=== PATIENT | female | born 1955 | race Asian ===

== ENCOUNTER 2023-01-29 08:46 | Inpatient (IN) | payer BC, MEDICARE ==
[~2023-01-29] VITALS: Ht 157.5 cm; Wt 62.7 kg
[~2023-01-29 08:46] MED LIST: CIPRO500 MG PO; METRONIDAZOLE500 MG PO
[2023-01-29] MEDS ORDERED: SODIUM CHLORIDE 0.9% 1000ML 1,000 ML IV STA (09:23)
[2023-01-29 09:43] LABS: BASOPHILS # (AUTO) 0.1 (0.0-0.1); BASOPHILS % 0.3 % (0.0-1.0); EOSINOPHILS % 0.1 % (0.0-6.0); HEMATOCRIT 41.7 % (34.2-44.1); HEMOGLOBIN 14.1 g/dL (12.0-16.0); LYMPHOCYTES # (AUTO) 1.3 (1.0-3.2); LYMPHOCYTES % 6.7 % (18.0-39.1); MEAN CORPUSCULAR HEMOGLOBIN 29.4 pg (28-32); MEAN CORPUSCULAR HGB CONC 33.8 g/dL (31-35); MEAN CORPUSCULAR VOLUME 86.9 fL (81-99); MONOCYTES # (AUTO) 0.8 (0.2-0.8); MONOCYTES % 4.3 % (4.4-11.3); NEUTROPHILS # (AUTO) 17.2 (2.1-6.9); NEUTROPHILS % 88.3 % (38.7-80.0); PLATELET COUNT 255 x10e3/uL (140-360); RED CELL DISTRIBUTION WIDTH 13.5 % (11.7-14.4)
[2023-01-29 09:53] LABS: INR 0.91; PROTHROMBIN TIME 12.8 seconds (11.9-14.5)
[2023-01-29 09:54] LABS: PARTIAL THROMBOPLASTIN TIME 39.2 seconds (23.8-35.5)
[2023-01-29 10:00] LABS: ALANINE AMINOTRANSFERASE 44 IU/L (0-55); ALBUMIN 4.4 g/dL (3.5-5.0); ALBUMIN/GLOBULIN RATIO 1.2 (0.8-2.0); ALKALINE PHOSPHATASE 68 IU/L (40-150); ANION GAP 15.6 mmol/L (8-16); BLOOD UREA NITROGEN 12 mg/dL (7-26); BUN/CREATININE RATIO 16 (6-25); CALCIUM 9.7 mg/dL (8.4-10.2); CARBON DIOXIDE 23 mmol/L (22-29); CHLORIDE 104 mmol/L (98-107); CREATININE, SERUM 0.77 mg/dL (0.57-1.11); GLUCOSE 139 mg/dL (74-118); LIPASE 34 U/L (8-78); POTASSIUM 3.6 mmol/L (3.5-5.1); SODIUM 139 mmol/L (136-145)
[2023-01-29] MEDS ORDERED: DIATRIZOATE MEGL/DIATRIZOA SOD 30 ML BTL PO ONE (10:01)
[2023-01-29 10:06] LABS: CLARITY,URINE CLEAR (CLEAR); COLOR,URINE YELLOW (YELLOW); KETONES,URINE NEGATIVE (NEGATIVE); LEUKOCYTE ESTERASE ,URINE NEGATIVE (NEGATIVE); NITRITE,URINE NEGATIVE (NEGATIVE); PROTEIN,URINE DIPSTICK NEGATIVE (NEGATIVE); URINE UROBILINOGEN 0.2 mg/dL (0.2 - 1)
[2023-01-29] MEDS ORDERED: IOPAMIDOL 370 MG/ML 100 ML INFUS..BTL INJ ONE (10:07)
[2023-01-29 10:23] LABS: BACTERIA,URINE FEW /HPF; EPITHELIAL CELLS,URINE FEW /LPF; RBC,URINE 0-5 /HPF (0-5); WBC,URINE (MAN) 0-5 /HPF (0-5)
[2023-01-29] MEDS: Morphine 2mg Syringe 2 MG/ML SYR IV PRN ×3 (14:28→22:12)
[2023-01-29] MEDS: ONDANSETRON HCL INJ 2MG/ML 2ML 2 MG/ML VIAL IV PRN ×3 (14:29→22:12)
[2023-01-29] MEDS: METRONIDAZOLE 500MG/NS 100ML 100 ML IV SCH ×2 (14:31→17:33)
[2023-01-29] MEDS: SODIUM CHLORIDE 0.9% 1000ML 1,000 ML IV SCH (14:31)
[2023-01-29 15:27] VITALS: BP 152/67; PULSE 68; RESP 18; TEMP 98.2; O2SAT 98
[2023-01-29 16:15] VITALS: BP 152/67; PULSE 68; RESP 18; TEMP 98.2; O2SAT 98
[2023-01-29 17:18] VITALS: BP 152/67; PULSE 68; RESP 18; TEMP 98.2; O2SAT 98
[2023-01-29] MEDS ORDERED: NO HOME MEDS (17:44)
[2023-01-29 20:00] VITALS: BP 157/69; PULSE 74; RESP 17; TEMP 100.6; O2SAT 97
[2023-01-30 00:06] VITALS: BP 149/60; PULSE 75; RESP 17; TEMP 100.8; O2SAT 95
[2023-01-30] MEDS: METRONIDAZOLE 500MG/NS 100ML 100 ML IV SCH ×5 (00:31→23:21)
[2023-01-30 04:00] VITALS: BP 136/61; PULSE 76; RESP 16; TEMP 98.1; O2SAT 95
[2023-01-30 05:56] LABS: BASOPHILS % 0.2 % (0.0-1.0); EOSINOPHILS % 0.2 % (0.0-6.0); HEMATOCRIT 32.8 % (34.2-44.1); HEMOGLOBIN 10.9 g/dL (12.0-16.0); LYMPHOCYTES # (AUTO) 1.2 (1.0-3.2); LYMPHOCYTES % 9.5 % (18.0-39.1); MEAN CORPUSCULAR HEMOGLOBIN 29.2 pg (28-32); MEAN CORPUSCULAR HGB CONC 33.2 g/dL (31-35); MEAN CORPUSCULAR VOLUME 87.9 fL (81-99); MONOCYTES # (AUTO) 0.7 (0.2-0.8); NEUTROPHILS % 84.7 % (38.7-80.0); PLATELET COUNT 217 x10e3/uL (140-360); RED BLOOD COUNT 3.73 x10e6/uL (3.6-5.1)
[2023-01-30 06:14] LABS: ALBUMIN 2.9 g/dL (3.5-5.0); ANION GAP 11.1 mmol/L (8-16); CALCIUM 8.2 mg/dL (8.4-10.2); CREATININE, SERUM 0.78 mg/dL (0.57-1.11); POTASSIUM 3.1 mmol/L (3.5-5.1)
[2023-01-30] MEDS: ONDANSETRON HCL INJ 2MG/ML 2ML 2 MG/ML VIAL IV PRN ×3 (07:58→16:46)
[2023-01-30] MEDS: Morphine 2mg Syringe 2 MG/ML SYR IV PRN ×3 (07:58→16:47)
[2023-01-30] MEDS: SODIUM CHLORIDE 0.9% 1000ML 1,000 ML IV SCH (07:59)
[2023-01-30] MEDS ORDERED: POTASSIUM CHLORIDE 20 MEQ TAB CR PO STA (08:40)
[2023-01-30 08:55] VITALS: BP 138/64; PULSE 67; RESP 16; TEMP 98.1; O2SAT 97
[2023-01-30 12:43] VITALS: BP 144/62; PULSE 78; RESP 16; TEMP 99.9; O2SAT 98
[2023-01-30 16:16] VITALS: BP 149/74; PULSE 81; RESP 16; TEMP 100.9; O2SAT 98
[2023-01-30 20:00] VITALS: BP 148/63; PULSE 71; RESP 16; TEMP 100.6; O2SAT 100
[2023-01-31] VITALS: BP 147/65; PULSE 74; RESP 17; TEMP 98.4; O2SAT 97
[2023-01-31 04:00] VITALS: BP 135/67; PULSE 77; RESP 17; TEMP 100.1; O2SAT 96
[2023-01-31] MEDS: METRONIDAZOLE 500MG/NS 100ML 100 ML IV SCH ×3 (06:10→17:09)
[2023-01-31 08:30] LABS: BASOPHILS % 0.2 % (0.0-1.0); EOSINOPHILS # (AUTO) 0.1 (0.0-0.4); EOSINOPHILS % 0.4 % (0.0-6.0); HEMATOCRIT 38.2 % (34.2-44.1); HEMOGLOBIN 12.5 g/dL (12.0-16.0); LYMPHOCYTES # (AUTO) 1.4 (1.0-3.2); LYMPHOCYTES % 8.6 % (18.0-39.1); MEAN CORPUSCULAR HEMOGLOBIN 29.1 pg (28-32); MEAN CORPUSCULAR HGB CONC 32.7 g/dL (31-35); MEAN CORPUSCULAR VOLUME 88.8 fL (81-99); MONOCYTES # (AUTO) 0.7 (0.2-0.8); MONOCYTES % 4.2 % (4.4-11.3); NEUTROPHILS # (AUTO) 14.3 (2.1-6.9); NEUTROPHILS % 86.2 % (38.7-80.0); PLATELET COUNT 236 x10e3/uL (140-360); RED CELL DISTRIBUTION WIDTH 14.2 % (11.7-14.4)
[2023-01-31 08:36] VITALS: BP 147/66; PULSE 70; RESP 21; TEMP 98.6; O2SAT 97
[2023-01-31 08:45] VITALS: BP 147/66; PULSE 70; RESP 21; TEMP 98.6; O2SAT 97
[2023-01-31 08:56] LABS: ANION GAP 12.8 mmol/L (8-16); CALCIUM 8.7 mg/dL (8.4-10.2); CHOL/HDL RATIO 3.1 (3.0-3.6); CREATININE, SERUM 0.8 mg/dL (0.57-1.11); MAGNESIUM 1.9 MG/DL (1.3-2.1); PHOSPHORUS 2.1 MG/DL (2.3-4.7); POTASSIUM 3.8 mmol/L (3.5-5.1)
[2023-01-31 09:16] LABS: THYROID STIMULATING HORMONE 2.488 uIU/mL (0.350-4.940)
[2023-01-31] MEDS ORDERED: POTASSIUM PHOSPHATE 15 MM in SODIUM CHLORIDE 0.9% 250ML 250 ML IV ONE (10:15)
[2023-01-31 12:37] VITALS: BP 159/78; PULSE 73; RESP 22; TEMP 98.4; O2SAT 100
[2023-01-31] MEDS ORDERED: ONDANSETRON ODT4 MG PO (17:46)
[2023-01-31] MEDS ORDERED: METRONIDAZOLE500 MG PO (17:46)
[2023-01-31] MEDS ORDERED: AUGMENTIN 500-1 EACH PO (17:46)
== END 2023-01-31 19:20 | disposition home or self-care (01) | DRG 392 ==
LOC: ER 08:56 → ERHOLD 13:11 → MED/SURG2 15:27
PROVIDERS: ADMIT Internal Medicine; ATTEND Internal Medicine
DX: K57.32 Diverticulitis of large intestine without perforation or abscess without bleeding (principal); E03.9 Hypothyroidism, unspecified
CPT/HCPCS: 0223U; 36415; 74177; 80048; 80053; 80061; 81001; 83036; 83690; 83735; 84100; 84443; 84484; 85025; 85610; 85730; 87086; 99284; J2270; J2405; J2543; J7030; J7050; Q9963; Q9967